=== PATIENT | male | born 1960 | race Caucasian/White ===

== ENCOUNTER 2021-04-21 19:30 | Emergency (ER) | payer BC, OTHER ==
[~2021-04-21 19:30] MED LIST: AMOXICILLIN500 MG PO; ASPIR-LOW81 MG PO; BYSTOLIC10 MG PO; HABITROL 21 MG P1 EA TOP; IMDUR ER TAB 3030 MG PO; LIBRIUM CAP 2525 MG PO; LOPRESSOR 25 MG25 MG PO; MAG-OX 400 TAB400 MG PO; NORVASC 5 MG TAB5 MG PO; PROTONIX40 MG PO; ROBITUSSIN AC480 ML PO; TAB-A-VITE1 EACH PO; VITAMIN B-1 5050 MG PO
[2021-04-21 20:07] LABS: HEMOGLOBIN 12.4 gm/dl (14.0-17.5); RED BLOOD COUNT 3.64 M/UL (4.20-5.50); WHITE BLOOD COUNT 7.7 K/UL (4.5-11.0)
[2021-04-21 20:35] LABS: BUN/CREATININE RATIO 9 (0-10)
== END 2021-04-21 23:47 | disposition home or self-care (01) ==
LOC: ER1 19:30
PROVIDERS: Emergency Medicine
DX: R41.82 Altered mental status, unspecified (principal); K74.60 Unspecified cirrhosis of liver; I10 Essential (primary) hypertension; Z86.73 Personal history of transient ischemic attack (TIA), and cerebral infarction without residual deficits; Z20.822 Contact with and (suspected) exposure to COVID-19
CPT/HCPCS: 0240U; 70450; 71045; 80053; 81001; 82140; 82550; 82553; 82962; 83690; 83735; 83874; 84484; 85025; 85610; 85730; 93005; 99285

== ENCOUNTER → 2021-06-03 | Day surgery (SDC) | payer BC ==
[~2021-06-03] MED LIST changes: +BREO ELLIPTA 11 EACH INH; +DULOXETINE HCL60 MG PO; +K-DUR TAB 20 M20 MEQ PO; +KEPPRA750 MG PO; +LACTULOSE10 GM/152 PO; +LASIX PO; +LISINOPRIL10 MG PO; +RISPERDAL 0.20.25 MG PO; +SERAX PO; +SUPER B-50 COM1 EACH PO; +TRAZODONE HCL100 MG PO; +XIFAXAN550 MG PO
== END | disposition home or self-care (01) ==
LOC: OR 06:08
DX: K63.5 Polyp of colon (principal); K21.9 Gastro-esophageal reflux disease without esophagitis; I10 Essential (primary) hypertension; F17.210 Nicotine dependence, cigarettes, uncomplicated; Z86.73 Personal history of transient ischemic attack (TIA), and cerebral infarction without residual deficits; Z80.0 Family history of malignant neoplasm of digestive organs; Z88.6 Allergy status to analgesic agent; Z79.899 Other long term (current) drug therapy
CPT/HCPCS: J2405; J2704; J7120